=== PATIENT | female | born 2000 | race Caucasian/White ===

== ENCOUNTER 2023-02-28 09:13 | Emergency (ER) | payer OTHER ==
[2023-02-28] MEDS ORDERED: Lidocaine 1% w/Epinephrine 1:100K 30 ML VIAL ONE (09:27)
[2023-02-28] MEDS ORDERED: Lidocaine 2% 6 ML (Jelly) SYR ONE (09:27)
[2023-02-28] MEDS ORDERED: Boostrix 0.5 ML (Tdap) VIAL (>/=7 yrs of age) ONE (09:41)
[2023-02-28] MEDS ORDERED: Bacitracin 1 PK ONE (10:10)
== END 2023-02-28 10:41 | disposition home or self-care (01) ==
LOC: MADERS 09:13
DX: S61.511A Laceration without foreign body of right wrist, initial encounter (principal); W25.XXXA Contact with sharp glass, initial encounter; Z23 Encounter for immunization
CPT/HCPCS: 12032; 90471; 90715